=== PATIENT | female | born 1995 | race Caucasian/White ===

== ENCOUNTER 2019-02-26 08:54 | Emergency (ER) | payer OTHER ==
[2019-02-26 09:33] VITALS: BP 107/50; PULSE 76; TEMP 98.6; BMI 23.1
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
== END 2019-02-26 10:08 | disposition home or self-care (01) ==
LOC: JERFT 08:54
DX: Z04.1 Encounter for examination and observation following transport accident (principal); V57.5XXA Driver of pick-up truck or van injured in collision with fixed or stationary object in traffic accident, initial encounter; Y92.414 Local residential or business street as the place of occurrence of the external cause; Y93.89 Activity, other specified; Y99.0 Civilian activity done for income or pay
CPT/HCPCS: 99281-25